=== PATIENT | male | born 1970 ===

== ENCOUNTER 2018-07-25 08:40 | Emergency (ER) | payer OTHER ==
[2018-07-25 08:45] VITALS: BMI 28.3
--- NOTE | 2018-07-25 09:35 | CT ---
Date of service: 07/25/2018 PROCEDURE: CT HEAD WITHOUT CONTRAST. HISTORY: block hit head at work, hematoma occiput COMPARISON: None available. TECHNIQUE: Axial computed tomography images were obtained through the head/brain without intravenous contrast. Radiation dose: Total exam DLP = 1232 mGy-cm. This CT exam was performed using one or more of the following dose reduction techniques: Automated exposure control, adjustment of the mA and/or kV according to patient size, and/or use of iterative reconstruction technique. FINDINGS: HEMORRHAGE: No intracranial hemorrhage. BRAIN: No mass effect or edema. No atrophy or chronic microvascular ischemic changes. VENTRICLES: Unremarkable. No hydrocephalus. CALVARIUM: Unremarkable. PARANASAL SINUSES: Unremarkable as visualized. No significant inflammatory changes. Probable chronic deformity of the medial wall of the right orbit. Clinical correlation. This is best seen on series 2, image 7. MASTOID AIR CELLS: Unremarkable as visualized. No inflammatory changes. OTHER FINDINGS: Soft tissue swelling with hematoma formation seen overlying the posterior left occipital cranium. IMPRESSION: No acute intracranial abnormality. Soft tissue swelling with hematoma formation seen overlying the posterior left occipital cranium. Probable chronic deformity of the medial wall of the right orbit. Clinical correlation. If symptoms persist, consider correlation with MRI.
--- NOTE | 2018-07-25 09:44 | C.PDOC ---
History Of Present Illness 48 y/o male presents to ED for evaluation of work related injury at 07:45 today. Patient states he was assisting with stocking cinder block onto scaffolding and it tipped over and hit his head and right upper arm. He complains of pain to back of his head and to right arm. Patient notes he was wearing a helmet. He denies LOC, headache, dizziness, weakness, numbness, or change in sensation. - HPI Time Seen by Provider: 07/25/18 08:54 Chief Complaint (Nursing): Trauma History Per: Patient History/Exam Limitations: no limitations Onset/Duration Of Symptoms: Hrs Recent travel outside of the [place]: No Additional History Per: Patient Past Medical History Reviewed: Historical Data, Nursing Documentation, Vital Signs Vital Signs: Last Vital Signs Temp 98.9 F 07/25/18 08:45 Pulse 67 07/25/18 08:45 Resp 17 07/25/18 08:45 BP 129/75 07/25/18 08:45 Pulse Ox 97 07/25/18 08:45 Family History: States: Unknown Family Hx - Social History Hx Alcohol Use: Yes Hx Substance Use: No - Immunization History Hx Tetanus Toxoid Vaccination: No Hx Influenza Vaccination: No Hx Pneumococcal Vaccination: No Review Of Systems Except As Marked, All Systems Reviewed And Found Negative. Constitutional: Negative for: Fever, Chills Cardiovascular: Negative for: Chest Pain Respiratory: Negative for: Shortness of Breath Skin: Positive for: Bruising (right upper arm) Neurological: Negative for: Weakness, Numbness, Headache, Dizziness Physical Exam - Physical Exam Appears: Non-toxic, No Acute Distress Skin: Warm, Dry, Ecchymosis (ecchymosis to right upper arm) Head: Normacephalic, No Abrasion, No Laceration (no bleeding), Other (hematoma to left occiput) Eye(s): bilateral: Normal Inspection Oral Mucosa: Moist Neck: Normal ROM, No Midline Cervical Tenderness, No Paracervical Tenderness, Supple Chest: Symmetrical Cardiovascular: Rhythm Regular, No Murmur Respiratory: Normal Breath Sounds, No Rales, No Rhonchi, No Wheezing Gastrointestinal/Abdominal: Soft, No Tenderness Back: No Vertebral Tenderness, No Paraspinal Tenderness, Other (superficial abrasion to upper back) Extremity: Normal ROM (Able to move right arm), Tenderness (right mid humerus), Capillary Refill (less than 2 seconds), No Deformity, Swelling (right mid humerus) Pulses: Left Radial: Normal, Right Radial: Normal Neurological/Psych: Oriented x3, Normal Speech, Normal Motor, Normal Sensation ED Course And Treatment O2 Sat by Pulse Oximetry: 97 (RA) Pulse Ox Interpretation: Normal - Other Rad Right Humerus X-Ray: Interpreted by Me, Viewed By Me Interpretation: No acute fracture or dislocation. Soft tissue swelling. Right Scapula X-Ray: Interpreted by Me, Viewed By Me Interpretation: No acute fracture or dislocation. Soft tissue swelling. - CT Scan/US Head CT Other Rad Studies (CT/US): Read By Radiologist, Radiology Report Reviewed CT/US Interpretation: Accession No. : [id number]. Patient Name / ID : LEONILA VARGAS / [id number]. Exam Date : 07/25/2018 09:15:28 ( Approved ). Study Comment : Sex / Age : M / 48Y. Creator : Will Pierce MD. Dictator : iWll Pierce MD. Tipple Worker : Floor Sweeper : Will Pierce MD. Approver2 : Report Date : 07/25/2018 09:33:36. My Comment : . Date of service: 07/25/2018. PROCEDURE: CT HEAD WITHOUT CONTRAST. HISTORY: block hit head at work, hematoma occiput. COMPARISON: None available. TECHNIQUE: Axial computed tomography images were obtained through the head/brain without intravenous contrast. Radiation dose: Total exam DLP = 1232 mGy-cm. This CT exam was performed using one or more of the following dose reduction techniques: Automated exposure control, adjustment of the mA and/or kV according to patient size, and/or use of iterative reconstruction technique. FINDINGS: HEMORRHAGE: No intracranial hemorrhage. BRAIN: No mass effect or edema. No atrophy or chronic microvascular ischemic changes. VENTRICLES: Unremarkable. No hydrocephalus. CALVARIUM: Unremarkable. PARANASAL SINUSES: Unremarkable as visualized. No significant inflammatory changes. Probable chronic deformity of the medial wall of the right orbit. Clinical correlation. This is best seen on series 2, image 7. MASTOID AIR CELLS: Unremarkable as visualized. No inflammatory changes. OTHER FINDINGS: Soft tissue swelling with hematoma formation seen overlying the posterior left occipital cranium. IMPRESSION: No acute intracranial abnormality. Soft tissue swelling with hematoma formation seen overlying the posterior left occipital cranium. Probable chronic deformity of the medial wall of the right orbit. Clinical correlation. If symptoms persist, consider correlation with MRI. Medical Decision Making Medical Decision Making: Impression: 48 year old male right upper arm pain and hematoma to back of head s/p injury. Plan: * Head CT * Right humerus Xray * Right scapula Xray * Tylenol Progress: All imaging reviewed, no fractures on xray. CT shows hematoma no ICH. Patient re-evaluated and remains alert and oriented without neuro deficits. Discussed results with patient. Patient feels comfortable going home and will be discharged. Recommend rest and analgesics. Advise return to the ER if any alteration in behavior or mental status, severe headache, nausea, persistent vomiting, or loss of consciousness occurs. Disposition Counseled Patient/Family Regarding: Diagnosis, Need For Followup, Rx Given - Disposition Referrals: [facility] [Outside] [facility] [Outside] Disposition: HOME/ ROUTINE Disposition Time: 10:31 Condition: STABLE Additional Instructions: You were evaluated in ED for injury to head and arm. Your CT of head shows scalp hematoma, no fracture or intracranial bleed. Your xrays were normal. Take pain medicine as needed and can apply ice to head area. Advise return to the ER if any alteration in behavior or mental status, severe headache, nausea, persistent vomiting, or loss of consciousness occurs. Usted fue evaluado en ED para lesiones en la betzy y el brazo. Dorsey tomografa computarizada de betzy muestra hematoma del cuero cabelludo, sin fractura o sangrado intracraneal. Tus radiografas jagdish normales. [place] analgsicos segn sea necesario y puede aplicar hielo en el cj de la betzy. Aconseje regresar a la lorena de emergencias si se produce alguna alteracin en el comportamiento o estado mental, dolor de betzy intenso, nuseas, vmitos persistentes o prdida de la conciencia. Prescriptions: Ibuprofen [Motrin] 600 mg PO Q8 #30 tab Instructions: Contusion in Adults (ED) Print Language: DUTCH - POA Present On Arrival: Falls Or Trauma - Clinical Impression Clinical Impression: Scalp hematoma, Contusion of arm - PA / ACCOUNTS PAYABLES CLERK / Resident Statement MD/DO has reviewed & agrees with the documentation as recorded. - Scribe Statement The provider has reviewed the documentation as recorded by the Scribe Chio Zuniga All medical record entries made by the Jarvisibmaral were at my direction and personally dictated by me. I have reviewed the chart and agree that the record accurately reflects my personal performance of the history, physical exam, medical decision making, and the department course for this patient. I have also personally directed, reviewed, and agree with the discharge instructions and disposition.
--- NOTE | 2018-07-25 10:14 | RAD ---
Date of service: 07/25/2018 PROCEDURE: HISTORY: pain s.p injury work, block hit area COMPARISON: None TECHNIQUE: Two views FINDINGS: No fracture or dislocation appreciated IMPRESSION: No fracture appreciated
--- NOTE | 2018-07-25 10:16 | RAD ---
PROCEDURE: Radiographs of the right humerus. HISTORY: pain s.p block hit arm at work COMPARISON: None. FINDINGS: BONES: Normal. No fracture or focal lesion. SOFT TISSUES: Normal. OTHER FINDINGS: None. IMPRESSION: Normal radiographs of right humerus.
[2018-07-25 10:40] VITALS: BP 119/74; PULSE 64; RESP 18; TEMP 98.2
[2018-07-25 14:19] VITALS: O2SAT 97
== END 2018-07-25 10:49 | disposition home or self-care (01) ==
LOC: C.ER 08:40
DX: S00.03XA Contusion of scalp, initial encounter (principal); S40.021A Contusion of right upper arm, initial encounter; W22.8XXA Striking against or struck by other objects, initial encounter; Y92.89 Other specified places as the place of occurrence of the external cause; Y99.0 Civilian activity done for income or pay